=== PATIENT | male | born 1990 | race American Indian/Alaskan Native ===

== ENCOUNTER 2017-08-15 22:38 | Emergency (ER) | payer BC, OTHER ==
[2017-08-15 23:50] VITALS: BP 116/87
[2017-08-16] MEDS ORDERED: Albuterol 0.083% 2.5 MG/3 ML Neb Soln NEB ONE (00:15)
--- NOTE | 2017-08-16 00:46 | EDM.PDOC ---
ED HPI GENERAL MEDICAL PROBLEM - General Chief Complaint: Respiratory Problem Stated Complaint: BRONCHITIS? [id number] Time Seen by Provider: 08/15/17 23:55 Source of Information: Reports: Patient History Limitations: Reports: No Limitations - History of Present Illness INITIAL COMMENTS - FREE TEXT/NARRATIVE: cough, fever, feeling week . Cough worse when trying to lie flat - Related Data Allergies Allergy/AdvReac Type Severity Reaction Status Date / Time No Known Allergies Allergy Verified 08/15/17 23:39 Home Meds: Home Meds . [No Known Home Meds] 07/10/16 [History] Past Medical History - Past Health History Medical/Surgical History: Denies Medical/Surgical History Endocrine/Metabolic History: Reports: Other (See Below) Other Endocrine/Metabolic History: surgery to leg Social & Family History - Family History Family Medical History: Noncontributory - Tobacco Use Smoking Status *Q: Unknown Ever Smoked Second Hand Smoke Exposure: No - Caffeine Use Caffeine Use: Reports: Coffee - Recreational Drug Use Recreational Drug Use: No ED ROS GENERAL - Review of Systems Review Of Systems: See Below Constitutional: Reports: Fever, Chills HEENT: Reports: Rhinitis Respiratory: Reports: Shortness of Breath, Cough Cardiovascular: Reports: No Symptoms GI/Abdominal: Reports: No Symptoms Musculoskeletal: Reports: No Symptoms Skin: Reports: No Symptoms ED EXAM, GENERAL - Physical Exam Exam: See Below Exam Limited By: No Limitations General Appearance: Alert, Mild Distress Eye Exam: Bilateral Eye: EOMI Ears: Normal External Exam, Normal TMs Nose: Clear Rhinorrhea Throat/Mouth: Normal Inspection Head: Atraumatic, Normocephalic Neck: Lymphadenopathy (L), Lymphadenopathy (R) (mild) Respiratory/Chest: Lungs Clear, Decreased Breath Sounds, Other (harsh loose cough). No: Crackles, Rales, Rhonchi Cardiovascular: Normal Peripheral Pulses, Regular Rate, Rhythm GI/Abdominal: Normal Bowel Sounds Back Exam: Normal Inspection Neurological: Alert, Oriented, Normal Cognition Psychiatric: Normal Affect Skin Exam: Warm, Dry, Intact Course - Vital Signs Last Recorded V/S: Last Vital Signs Temp 101.3 F H 08/15/17 23:46 Pulse 90 08/15/17 23:46 Resp 20 08/15/17 23:46 BP 116/87 08/15/17 23:46 Pulse Ox 99 08/15/17 23:46 - Orders/Labs/Meds Meds: Medications Discontinued Medications Generic Name Dose Route Start Last Admin Trade Name Jason PRN Reason Stop Dose Admin Albuterol 2.5 mg 08/16/17 00:15 08/16/17 00:20 Proventil Neb Soln NEB 08/16/17 00:16 2.5 mg ONETIME ONE Administration Amoxicillin/Clavulanate Potassium 1 tab 08/16/17 01:03 08/16/17 01:14 Augmentin 875 Mg/125 Mg PO 08/16/17 01:04 1 tab ONETIME ONE Administration - Radiology Interpretation Free Text/Narrative:: CXR: Normal Departure - Departure Time of Disposition: 01:04 Disposition: Home, Self-Care 01 Condition: Good Clinical Impression: Bronchitis - Discharge Information Instructions: Acute Bronchitis, [id number] Referrals: PCP,None [Primary Care Provider] - Forms: ED Department Discharge Additional Instructions: tylenol or ibuprofen for fever/discomfort increase fluid intake augmentin 875/125 one twice daily for one week robitussion per label for cough and congestion humidification follow up as symptoms worsen
[2017-08-16] MEDS ORDERED: Amoxicillin/Clavulanate K 875-125 MG Tab PO ONE (01:03)
== END 2017-08-16 01:15 | disposition home or self-care (01) ==
LOC: DL.ED 22:38
DX: J40 Bronchitis, not specified as acute or chronic (principal)
CPT/HCPCS: 71045; 94640; 99283; A9270-GY; J7620-GY